=== PATIENT | female | born 1950 | race Caucasian/White ===

== ENCOUNTER → 2024-08-25 11:00 | Outpatient (CLI) | payer MEDICARE, SELFPAY | LOC: RESP 11:01 | PROVIDERS: PCP Physician Assistant; Referring Provider Internal Medicine Critical Care Medicine; Visit Provider Internal Medicine Critical Care Medicine | DX: J47.9 Bronchiectasis, uncomplicated (principal); Z87.891 Personal history of nicotine dependence; R94.2 Abnormal results of pulmonary function studies | CPT/HCPCS: 94060; 94726; 94729 ==